=== PATIENT | female | born 1930 | race Caucasian/White ===

== ENCOUNTER 2020-06-12 13:15 | Inpatient (IN) ==
[2020-06-12] MEDS ORDERED: SODIUM CHLORIDE 0.9% 1,000 ML IV STA (13:46)
[2020-06-12 14:54] LABS: Basophils % 0.1 % (0.0-0.8); Hematocrit 41.6 VOL% (35.7-47.0); Hemoglobin 13.1 GM/DL (12.0-16.0); Immature Granulocytes % 0.5 %; Immature Granulocytes Absolute 0.04 #; Lymphocytes # 2.9 10*3/uL (1.4-4.0); Lymphocytes % 33.8 % (21.3-54.2); Mean Corpuscular HGB Conc 31.5 GM/DL (32-36); Mean Corpuscular Volume 105.1 FL (87-102); Mean Platelet Volume 10.6 FL (9.6-12.0); Monocytes % 2.9 % (1.7-12.7); Neutrophils % 62.7 % (38.7-73.9); Platelet Count 187 T/CUMM (130-400); Red Blood Count 3.96 MC/CUMM (3.8-5.5); White Blood Count 8.6 T/CUMM (4-12)
[2020-06-12 15:08] LABS: INR 1.1; PT Patient Result 11.3 SECS (9.8-11.9); Partial Thromboplastin Time 26.7 SECS (23.9-33.8)
[2020-06-12] MEDS ORDERED: LEVOFLOXACIN INJ 750 MG in PREMIX 1 EACH IV STA (15:12)
[2020-06-12 15:14] LABS: Bilirubin,Urine Negative (Negative); Blood, Urine Small mg/dL (Negative); Glucose,Urine (UA) Negative (Negative); Ketones,Urine 5 mg/dL (Negative); Nitrite,Urine Negative (Negative); Protein,Urine 100 MG/DL; RBC,Urine 114 /HPF (0-4); Urine Appearance CLOUDY (Clear); Urine Color Yellow (Yellow); Urine Specific Gravity 1.017 (1.001-1.035); Urine Urobilinogen < 2.0 EU/DL (0.2-1.0); WBC,Urine 826 /HPF (0-6)
[2020-06-12 15:21] LABS: Alanine Aminotransferase 20 U/L (13-56); Albumin 2.8 G/DL (3.4-5.0); Alkaline Phosphatase 79 U/L (45-117); Aspartate Amino Transferase 40 U/L (0-37); Bilirubin,Total < 0.39 MG/DL (0.2-1.0); Blood Urea Nitrogen 58 MG/DL (7-18); Calcium 8.7 MG/DL (8.5-10.1); Estimated Glom Filtration Rate 16 ML/MIN; Glucose 141 MG/DL (74-106); Total Protein 7.5 G/DL (6.4-8.3)
[2020-06-12] MEDS ORDERED: DIGOXIN 0.5 MG/2 ML AMP IV STA (17:08)
[2020-06-12] MEDS ORDERED: DEXTROSE 50% 25 GM/50 ML VIAL IV PRN (18:01)
[2020-06-12] MEDS ORDERED: DOCUSATE SODIUM 100 MG CAPSULE PO PRN (18:01)
[2020-06-12] MEDS ORDERED: SODIUM CHLORIDE 0.9% 600 ML IV ONE (18:01)
[2020-06-12] MEDS ORDERED: ONDANSETRON 4 MG/2 ML VIAL IV PRN (18:01)
[2020-06-12] MEDS ORDERED: GLUCAGON 1 MG VIAL IM PRN (18:01)
[2020-06-12] MEDS ORDERED: LACTULOSE 20 GM/30 ML UDCUP PO PRN (18:01)
[2020-06-12] MEDS ORDERED: LORazepam 1 MG TABLET PO PRN (18:59)
[2020-06-12] MEDS: ZINC GLUCONATE 50 MG TABLET PO SCH (21:18)
[2020-06-12] MEDS: DONEPEZIL 10 MG TABLET PO SCH (21:18)
[2020-06-12] MEDS: SODIUM CHLORIDE 0.9% 1,000 ML IV SCH (21:18)
[2020-06-12] MEDS: levETIRAcetam 500 MG TABLET PO SCH (21:18)
[2020-06-12] MEDS: FERROUS SULFATE 325 MG TABLET PO SCH (21:18)
[2020-06-12] MEDS: GABAPENTIN 300 MG CAPSULE PO SCH (21:18)
[2020-06-12] MEDS: ENOXAPARIN 30 MG/0.3 ML SYRINGE SUBCUT SCH (21:18)
[2020-06-12 22:00] LABS: Hematocrit 36.1 VOL% (35.7-47.0); Hemoglobin 11.5 GM/DL (12.0-16.0)
[2020-06-13 04:52] LABS: Basophils % 0.2 % (0.0-0.8); Hematocrit 33.9 VOL% (35.7-47.0); Hemoglobin 10.7 GM/DL (12.0-16.0); Immature Granulocytes % 0.6 %; Immature Granulocytes Absolute 0.06 #; Lymphocytes # 2.4 10*3/uL (1.4-4.0); Lymphocytes % 25.5 % (21.3-54.2); Mean Corpuscular HGB Conc 31.6 GM/DL (32-36); Mean Corpuscular Volume 104.6 FL (87-102); Mean Platelet Volume 10.4 FL (9.6-12.0); Monocytes % 2.9 % (1.7-12.7); Neutrophils % 70.8 % (38.7-73.9); Platelet Count 131 T/CUMM (130-400); Red Blood Count 3.24 MC/CUMM (3.8-5.5); White Blood Count 9.3 T/CUMM (4-12)
[2020-06-13 05:13] LABS: Band Neutrophils 6 % (0-10); Hypochromasia 1+; Lymphocytes 21 % (20-55); Microcytosis 1+; Ovalocytes Slight; Platelet Estimate Adequate; Segmented Neutrophils 72 % (50-85); Total Cells Counted 100
[2020-06-13 05:28] LABS: Albumin 2.1 G/DL (3.4-5.0); Bilirubin,Total 0.4 MG/DL (0.2-1.0); Calcium 7.9 MG/DL (8.5-10.1); Osmolality,Calculated 319.3 MOS/KG (273-304); Thyroid Stimulating Hormone 1.37 uIU/ml (0.358-3.74); Total Protein 5.7 G/DL (6.4-8.3)
[2020-06-13] MEDS: SODIUM CHLORIDE 0.45% 1,000 ML IV SCH ×2 (09:04→19:28)
[2020-06-13] MEDS: MULTIVITAMIN (CENTRUM) TABLET PO SCH (09:50)
[2020-06-13] MEDS: PANTOPRAZOLE 40 MG TABLET PO SCH (09:50)
[2020-06-13] MEDS: ASPIRIN EC 81 MG TABLET PO SCH (09:50)
[2020-06-13] MEDS: METOPROLOL SUCCINATE XL 25 MG TABLET PO SCH (09:50)
[2020-06-13] MEDS: ASCORBIC ACID 500 MG TABLET PO SCH (09:50)
[2020-06-13] MEDS: FERROUS SULFATE 325 MG TABLET PO SCH ×2 (09:50→22:11)
[2020-06-13] MEDS: ZINC GLUCONATE 50 MG TABLET PO SCH ×2 (09:51→22:12)
[2020-06-13] MEDS: DEXAMETHASONE 4 MG/1 ML VIAL IV SCH (12:40)
[2020-06-13] MEDS ORDERED: FUROSEMIDE 40 MG/4 ML VIAL IV STA (12:42)
[2020-06-13] MEDS: SODIUM CHLORIDE 0.9% 1,000 ML IV SCH (15:25)
[2020-06-13] MEDS ORDERED: INFLUENZA VIRUS VACCINE 0.5 ML SYRINGE IM ONE (18:35)
[2020-06-13] MEDS: DONEPEZIL 10 MG TABLET PO SCH (22:11)
[2020-06-13] MEDS: GABAPENTIN 300 MG CAPSULE PO SCH (22:11)
[2020-06-13] MEDS: ENOXAPARIN 30 MG/0.3 ML SYRINGE SUBCUT SCH (22:13)
[2020-06-14] MEDS: SODIUM CHLORIDE 0.45% 1,000 ML IV SCH ×3 (03:00→12:12)
[2020-06-14 06:43] LABS: Basophils % 0.1 % (0.0-0.8); Hemoglobin 10.3 GM/DL (12.0-16.0); Immature Granulocytes % 0.7 %; Immature Granulocytes Absolute 0.05 #; Lymphocytes # 1.1 10*3/uL (1.4-4.0); Lymphocytes % 14.7 % (21.3-54.2); Mean Corpuscular HGB Conc 32.2 GM/DL (32-36); Mean Corpuscular Volume 102.2 FL (87-102); Mean Platelet Volume 11.2 FL (9.6-12.0); Neutrophils % 82.5 % (38.7-73.9); Platelet Count 115 T/CUMM (130-400); Red Blood Count 3.13 MC/CUMM (3.8-5.5); Red Cell Distribution Width 13.1 % (9.3-17.3); White Blood Count 7.2 T/CUMM (4-12)
[2020-06-14 06:47] LABS: Albumin 2.1 G/DL (3.4-5.0); Bilirubin,Total 1.3 MG/DL (0.2-1.0); Calcium 7.8 MG/DL (8.5-10.1); Osmolality,Calculated 318.4 MOS/KG (273-304); Total Protein 5.8 G/DL (6.4-8.3)
[2020-06-14] MEDS: levETIRAcetam 500 MG TABLET PO SCH (07:03)
[2020-06-14 07:08] LABS: Band Neutrophils 5 % (0-10); Lymphocytes 14 % (20-55); Segmented Neutrophils 81 % (50-85); Total Cells Counted 100
[2020-06-14 07:09] LABS: Hypochromasia 1+; Microcytosis 1+; Ovalocytes Slight; Platelet Estimate Decreased
[2020-06-14] MEDS: METOPROLOL SUCCINATE XL 25 MG TABLET PO SCH (08:37)
[2020-06-14] MEDS: FERROUS SULFATE 325 MG TABLET PO SCH ×2 (08:37→21:59)
[2020-06-14] MEDS: ASPIRIN EC 81 MG TABLET PO SCH (08:37)
[2020-06-14] MEDS: ASCORBIC ACID 500 MG TABLET PO SCH (08:37)
[2020-06-14] MEDS: MULTIVITAMIN (CENTRUM) TABLET PO SCH (08:37)
[2020-06-14] MEDS: PANTOPRAZOLE 40 MG TABLET PO SCH (08:37)
[2020-06-14] MEDS: ZINC GLUCONATE 50 MG TABLET PO SCH ×2 (08:38→21:59)
[2020-06-14] MEDS: DESITIN 4OZ/NYSTATIN 15 GRAM MIXTURE PASTE TOP SCH ×2 (11:48→21:59)
[2020-06-14] MEDS: DEXAMETHASONE 4 MG/1 ML VIAL IV SCH (11:48)
[2020-06-14] MEDS: LEVOFLOXACIN INJ 500 MG in PREMIX 1 EACH IV SCH (16:27)
[2020-06-14] MEDS: GABAPENTIN 300 MG CAPSULE PO SCH (21:59)
[2020-06-14] MEDS: DONEPEZIL 10 MG TABLET PO SCH (21:59)
[2020-06-14] MEDS: ENOXAPARIN 30 MG/0.3 ML SYRINGE SUBCUT SCH (21:59)
[2020-06-15] MEDS: SODIUM CHLORIDE 0.45% 1,000 ML IV SCH ×3 (00:46→23:57)
[2020-06-15 06:50] LABS: Basophils % 0.1 % (0.0-0.8); Hematocrit 29.6 VOL% (35.7-47.0); Hemoglobin 9.9 GM/DL (12.0-16.0); Immature Granulocytes % 0.5 %; Immature Granulocytes Absolute 0.04 #; Lymphocytes # 0.8 10*3/uL (1.4-4.0); Lymphocytes % 10.9 % (21.3-54.2); Mean Corpuscular HGB Conc 33.4 GM/DL (32-36); Mean Platelet Volume 10.6 FL (9.6-12.0); Monocytes % 2.4 % (1.7-12.7); Neutrophils % 86.1 % (38.7-73.9); Platelet Count 114 T/CUMM (130-400); Red Blood Count 2.99 MC/CUMM (3.8-5.5); White Blood Count 7.6 T/CUMM (4-12)
[2020-06-15 07:13] LABS: Alanine Aminotransferase 15 U/L (13-56); Alkaline Phosphatase 59 U/L (45-117); Aspartate Amino Transferase 30 U/L (0-37); Bilirubin,Total < 0.39 MG/DL (0.2-1.0); Blood Urea Nitrogen 56 MG/DL (7-18); Calcium 7.8 MG/DL (8.5-10.1); Estimated Glom Filtration Rate 35 ML/MIN; Glucose 83 MG/DL (74-106); Osmolality,Calculated 308.3 MOS/KG (273-304); Total Protein 5.4 G/DL (6.4-8.3)
[2020-06-15 07:15] LABS: Lymphocytes 11 % (20-55); Segmented Neutrophils 87 % (50-85); Total Cells Counted 100
[2020-06-15 07:16] LABS: Hypochromasia 1+; Microcytosis 1+; Platelet Estimate Decreased
[2020-06-15] MEDS: ASPIRIN EC 81 MG TABLET PO SCH (09:03)
[2020-06-15] MEDS: DESITIN 4OZ/NYSTATIN 15 GRAM MIXTURE PASTE TOP SCH ×2 (09:03→21:37)
[2020-06-15] MEDS: ZINC GLUCONATE 50 MG TABLET PO SCH ×2 (09:03→21:38)
[2020-06-15] MEDS: FERROUS SULFATE 325 MG TABLET PO SCH ×2 (09:03→21:37)
[2020-06-15] MEDS: ASCORBIC ACID 500 MG TABLET PO SCH (09:03)
[2020-06-15] MEDS: METOPROLOL SUCCINATE XL 25 MG TABLET PO SCH (09:03)
[2020-06-15] MEDS: MULTIVITAMIN (CENTRUM) TABLET PO SCH (09:03)
[2020-06-15] MEDS: PANTOPRAZOLE 40 MG TABLET PO SCH (09:03)
[2020-06-15] MEDS: DEXAMETHASONE 4 MG/1 ML VIAL IV SCH (12:18)
[2020-06-15] MEDS ORDERED: REMDESIVIR 200 MG in SODIUM CHLORIDE 0.9% 210 ML IV ONE (16:00)
[2020-06-15] MEDS: DONEPEZIL 10 MG TABLET PO SCH (21:37)
[2020-06-15] MEDS: GABAPENTIN 300 MG CAPSULE PO SCH (21:37)
[2020-06-15] MEDS: ENOXAPARIN 30 MG/0.3 ML SYRINGE SUBCUT SCH (21:37)
[2020-06-16] MEDS: SODIUM CHLORIDE 0.45% 1,000 ML IV SCH ×2 (04:00→16:51)
[2020-06-16 05:59] LABS: Basophils % 0.1 % (0.0-0.8); Hematocrit 29.7 VOL% (35.7-47.0); Hemoglobin 9.7 GM/DL (12.0-16.0); Immature Granulocytes % 0.9 %; Immature Granulocytes Absolute 0.07 #; Lymphocytes # 0.8 10*3/uL (1.4-4.0); Mean Corpuscular HGB Conc 32.7 GM/DL (32-36); Mean Platelet Volume 11.4 FL (9.6-12.0); Monocytes % 3.7 % (1.7-12.7); Neutrophils % 84.3 % (38.7-73.9); Platelet Count 112 T/CUMM (130-400); Red Blood Count 3.03 MC/CUMM (3.8-5.5); Red Cell Distribution Width 12.8 % (9.3-17.3); White Blood Count 7.6 T/CUMM (4-12)
[2020-06-16 06:24] LABS: Albumin 1.8 G/DL (3.4-5.0); Bilirubin,Total 0.4 MG/DL (0.2-1.0); Calcium 7.8 MG/DL (8.5-10.1); Osmolality,Calculated 303.3 MOS/KG (273-304)
[2020-06-16 06:45] LABS: Band Neutrophils 4 % (0-10); Burr Cells Slight; Hypochromasia 1+; Lymphocytes 8 % (20-55); Nucleated Red Blood Cells 1 (0-5); Ovalocytes Slight; Platelet Estimate Decreased; Segmented Neutrophils 83 % (50-85); Total Cells Counted 100
[2020-06-16 06:46] LABS: Microcytosis 1+
[2020-06-16] MEDS: ASPIRIN EC 81 MG TABLET PO SCH (09:38)
[2020-06-16] MEDS: ASCORBIC ACID 500 MG TABLET PO SCH (09:38)
[2020-06-16] MEDS: DESITIN 4OZ/NYSTATIN 15 GRAM MIXTURE PASTE TOP SCH ×2 (09:38→22:11)
[2020-06-16] MEDS: MULTIVITAMIN (CENTRUM) TABLET PO SCH (09:38)
[2020-06-16] MEDS: METOPROLOL SUCCINATE XL 25 MG TABLET PO SCH (09:38)
[2020-06-16] MEDS: FERROUS SULFATE 325 MG TABLET PO SCH ×2 (09:38→21:25)
[2020-06-16] MEDS: PANTOPRAZOLE 40 MG TABLET PO SCH (09:38)
[2020-06-16] MEDS: ZINC GLUCONATE 50 MG TABLET PO SCH ×2 (09:39→22:11)
[2020-06-16] MEDS: REMDESIVIR 100 MG in SODIUM CHLORIDE 0.9% 230 ML IV SCH (09:52)
[2020-06-16] MEDS: DEXAMETHASONE 4 MG/1 ML VIAL IV SCH (13:38)
[2020-06-16] MEDS: LEVOFLOXACIN INJ 500 MG in PREMIX 1 EACH IV SCH (16:51)
[2020-06-16] MEDS: ENOXAPARIN 30 MG/0.3 ML SYRINGE SUBCUT SCH (21:25)
[2020-06-16] MEDS: DONEPEZIL 10 MG TABLET PO SCH (21:25)
[2020-06-16] MEDS: GABAPENTIN 300 MG CAPSULE PO SCH (22:11)
[2020-06-17] MEDS: SODIUM CHLORIDE 0.45% 1,000 ML IV SCH ×3 (02:26→22:13)
[2020-06-17 05:10] LABS: Bilirubin,Total 0.4 MG/DL (0.2-1.0); Calcium 8.1 MG/DL (8.5-10.1); Osmolality,Calculated 304.3 MOS/KG (273-304); Total Protein 5.4 G/DL (6.4-8.3)
[2020-06-17 05:26] LABS: Basophils % 0.1 % (0.0-0.8); Hematocrit 30.2 VOL% (35.7-47.0); Hemoglobin 10.4 GM/DL (12.0-16.0); Immature Granulocytes % 0.9 %; Immature Granulocytes Absolute 0.06 #; Lymphocytes # 0.7 10*3/uL (1.4-4.0); Mean Corpuscular HGB Conc 34.4 GM/DL (32-36); Mean Corpuscular Volume 94.4 FL (87-102); Monocytes % 2.5 % (1.7-12.7); Neutrophils % 86.5 % (38.7-73.9); Platelet Count 127 T/CUMM (130-400); White Blood Count 6.9 T/CUMM (4-12)
[2020-06-17] MEDS: FERROUS SULFATE 325 MG TABLET PO SCH ×3 (05:36→20:05)
[2020-06-17] MEDS: ZINC GLUCONATE 50 MG TABLET PO SCH ×3 (05:36→20:05)
[2020-06-17] MEDS: GABAPENTIN 300 MG CAPSULE PO SCH ×2 (05:36→20:05)
[2020-06-17] MEDS: DONEPEZIL 10 MG TABLET PO SCH ×2 (05:36→20:05)
[2020-06-17] MEDS: ASPIRIN EC 81 MG TABLET PO SCH (09:52)
[2020-06-17] MEDS: MULTIVITAMIN (CENTRUM) TABLET PO SCH (09:52)
[2020-06-17] MEDS: PANTOPRAZOLE 40 MG TABLET PO SCH (09:53)
[2020-06-17] MEDS: ASCORBIC ACID 500 MG TABLET PO SCH (09:53)
[2020-06-17] MEDS: DESITIN 4OZ/NYSTATIN 15 GRAM MIXTURE PASTE TOP SCH ×2 (09:53→20:05)
[2020-06-17] MEDS: METOPROLOL SUCCINATE XL 25 MG TABLET PO SCH (09:53)
[2020-06-17] MEDS ORDERED: DEXAMETHASONE 4 MG/1 ML VIAL PO SCH (14:40)
[2020-06-17] MEDS: DEXAMETHASONE 4 MG/1 ML VIAL IV SCH (14:42)
[2020-06-17] MEDS: DEXAMETHASONE 4 MG TABLET PO SCH (17:17)
[2020-06-17] MEDS: REMDESIVIR 100 MG in SODIUM CHLORIDE 0.9% 230 ML IV SCH (17:17)
[2020-06-17] MEDS: levETIRAcetam LIQUID 100 MG/ML 30 ML/BOTTLE PO SCH (20:05)
[2020-06-17] MEDS: ENOXAPARIN 30 MG/0.3 ML SYRINGE SUBCUT SCH (20:05)
[2020-06-18] MEDS: SODIUM CHLORIDE 0.45% 1,000 ML IV SCH ×2 (08:05→20:16)
[2020-06-18] MEDS: REMDESIVIR 100 MG in SODIUM CHLORIDE 0.9% 230 ML IV SCH (08:05)
[2020-06-18] MEDS: ASPIRIN EC 81 MG TABLET PO SCH ×2 (09:23→10:05)
[2020-06-18] MEDS: MULTIVITAMIN (CENTRUM) TABLET PO SCH ×2 (09:23→10:05)
[2020-06-18] MEDS: ASCORBIC ACID 500 MG TABLET PO SCH ×2 (09:24→10:05)
[2020-06-18] MEDS: DEXAMETHASONE 4 MG TABLET PO SCH ×2 (09:24→10:05)
[2020-06-18] MEDS: levETIRAcetam LIQUID 100 MG/ML 30 ML/BOTTLE PO SCH (09:24)
[2020-06-18] MEDS: FERROUS SULFATE 325 MG TABLET PO SCH ×3 (09:24→20:16)
[2020-06-18] MEDS: PANTOPRAZOLE 40 MG TABLET PO SCH ×2 (09:24→10:05)
[2020-06-18] MEDS: DESITIN 4OZ/NYSTATIN 15 GRAM MIXTURE PASTE TOP SCH ×2 (09:24→20:17)
[2020-06-18] MEDS: METOPROLOL SUCCINATE XL 25 MG TABLET PO SCH ×2 (09:24→10:05)
[2020-06-18] MEDS: ZINC GLUCONATE 50 MG TABLET PO SCH ×2 (10:05→20:17)
[2020-06-18] MEDS: LEVOFLOXACIN INJ 500 MG in PREMIX 1 EACH IV SCH (16:04)
[2020-06-18] MEDS: DONEPEZIL 10 MG TABLET PO SCH (20:16)
[2020-06-18] MEDS: GABAPENTIN 300 MG CAPSULE PO SCH (20:17)
[2020-06-18] MEDS: ENOXAPARIN 30 MG/0.3 ML SYRINGE SUBCUT SCH (20:17)
[2020-06-19 05:57] LABS: Basophils % 0.3 % (0.0-0.8); Eosinophils % 0.1 % (0.00-10.9); Hematocrit 30.3 VOL% (35.7-47.0); Hemoglobin 10.1 GM/DL (12.0-16.0); Immature Granulocytes % 1.9 %; Immature Granulocytes Absolute 0.13 #; Lymphocytes # 0.9 10*3/uL (1.4-4.0); Lymphocytes % 12.9 % (21.3-54.2); Mean Corpuscular HGB Conc 33.3 GM/DL (32-36); Mean Corpuscular Volume 96.5 FL (87-102); Mean Platelet Volume 10.6 FL (9.6-12.0); Monocytes % 4.1 % (1.7-12.7); Neutrophils % 80.7 % (38.7-73.9); Platelet Count 133 T/CUMM (130-400); Red Blood Count 3.14 MC/CUMM (3.8-5.5); Red Cell Distribution Width 13.6 % (9.3-17.3); White Blood Count 6.8 T/CUMM (4-12)
[2020-06-19 06:14] LABS: Calcium 8.2 MG/DL (8.5-10.1); Osmolality,Calculated 304.9 MOS/KG (273-304)
[2020-06-19 06:55] LABS: Band Neutrophils 3 % (0-10); Lymphocytes 15 % (20-55); Metamyelocytes 2 %; Segmented Neutrophils 77 % (50-85); Total Cells Counted 100
[2020-06-19 06:56] LABS: Anisocytosis 1+; Microcytosis 1+; Platelet Estimate Decreased
[2020-06-19] MEDS: MULTIVITAMIN (CENTRUM) TABLET PO SCH (09:30)
[2020-06-19] MEDS: ASPIRIN EC 81 MG TABLET PO SCH (09:30)
[2020-06-19] MEDS: FERROUS SULFATE 325 MG TABLET PO SCH (09:31)
[2020-06-19] MEDS: DESITIN 4OZ/NYSTATIN 15 GRAM MIXTURE PASTE TOP SCH (09:31)
[2020-06-19] MEDS: METOPROLOL SUCCINATE XL 25 MG TABLET PO SCH (09:31)
[2020-06-19] MEDS: DEXAMETHASONE 4 MG TABLET PO SCH (09:31)
[2020-06-19] MEDS: PANTOPRAZOLE 40 MG TABLET PO SCH (09:31)
[2020-06-19] MEDS: ASCORBIC ACID 500 MG TABLET PO SCH (09:32)
[2020-06-19] MEDS: ZINC GLUCONATE 50 MG TABLET PO SCH (09:32)
[2020-06-19] MEDS: REMDESIVIR 100 MG in SODIUM CHLORIDE 0.9% 230 ML IV SCH (10:09)
[2020-06-19 11:43] VITALS: BP 145/53
== END 2020-06-19 16:00 | DRG 871 ==
LOC: N.ED 13:15 → N.EDINP 18:01 → SUATTDRO 18:01 → N.2E 06-13 15:20
PROVIDERS: ADMIT Family Medicine; ATTEND Hospitalist